=== PATIENT | female | born 1985 | race Caucasian/White ===

== ENCOUNTER 2018-05-26 19:53 | Emergency (ER) | payer OTHER ==
[~2018-05-26] VITALS: Ht 162.6 cm; Wt 90.9 kg
[~2018-05-26 19:53] MED LIST: NOCURR
[2018-05-26] MEDS ORDERED: PERTUSS(ACELL),DIPH,TET VAC/PF 0.5 ML VIAL IM ONE (21:30)
[2018-05-26] MEDS ORDERED: BACITRACIN 0.9 GM PACKET OINTMENT TP ONE (21:30)
[2018-05-26 21:48] VITALS: BP 136/82
== END 2018-05-26 21:52 | disposition home or self-care (01) ==
LOC: EMS 19:53
DX: S61.311A Laceration without foreign body of left index finger with damage to nail, initial encounter (principal); R03.0 Elevated blood-pressure reading, without diagnosis of hypertension; W26.0XXA Contact with knife, initial encounter; Y93.89 Activity, other specified; Y92.69 Other specified industrial and construction area as the place of occurrence of the external cause; Y99.0 Civilian activity done for income or pay
CPT/HCPCS: 90471; 90715

== ENCOUNTER 2019-03-04 15:36 | Emergency (ER) | payer MEDICAID, OTHER ==
[~2019-03-04] VITALS: Ht 167.6 cm; Wt 72.7 kg
[2019-03-04 16:02] LABS: BASOPHILS % (AUTO) 0.5 % (0.0-2.0); EOSINOPHILS % (AUTO) 1.2 % (1.0-6.0); HEMATOCRIT 37.3 % (36-46); HEMOGLOBIN 12.8 g/dL (12.0-16.0); LYMPHOCYTES # (AUTO) 1.8 K/uL (1.0-4.8); LYMPHOCYTES % (AUTO) 23.2 % (22.0-44.0); MEAN CORPUSCULAR HEMOGLOBIN 30.7 pg (26.0-34.0); MEAN CORPUSCULAR HGB CONC 34.4 G/dL (31.0-37.0); MEAN CORPUSCULAR VOLUME 90 fL (80-100); MONOCYTES # (AUTO) 0.4 K/uL (0.1-1.0); MONOCYTES % (AUTO) 5.3 % (2.0-9.0); NEUTROPHILS # (AUTO) 5.3 K/uL (1.8-7.7); NEUTROPHILS % (AUTO) 69.8 % (40.0-70.0); PLATELET COUNT (AUTO) 195 K/uL (150-450); RED BLOOD CELL COUNT(AUTO) 4.17 MIL/uL (4.00-5.20); RED CELL DISTRIBUTION WIDTH 13.9 % (11.5-14.5)
[2019-03-04 16:51] LABS: ANION GAP 6 mmol/L (8-16); CALCIUM, TOTAL 8.8 mg/dL (8.8-10.5); CARBON DIOXIDE 30 mmol/L (22-29); CHLORIDE 104 mmol/L (98-107); GLUCOSE,RANDOM 104 mg/dL (70-110); POTASSIUM 4.1 mmol/L (3.5-5.1); SODIUM SERUM 140 mmol/L (136-145)
[2019-03-04 17:04] LABS: ALANINE AMINOTRANSFERASE 38 U/L (12-78); ALBUMIN 3.9 g/dL (3.4-5.0); ALKALINE PHOSPHATASE 67 U/L (46-116); ASPARTATE AMINOTRANSFERASE 20 U/L (15-37); BILIRUBIN,TOTAL 0.3 mg/dL (0.1-1.0); CREATININE 0.92 mg/dL (0.60-1.30); GLOMERULAR FILTR. RATE CALC > 60 mL/min (>60); LIPASE 144 U/L (73-393); TOTAL PROTEIN, SERUM 7.7 g/dL (6.4-8.2); UREA NITROGEN, BLOOD 8 mg/dL (7-18)
[2019-03-04 18:10] LABS: HCG,QUANTITATIVE < 1 mIU/mL (0-6)
[2019-03-04] MEDS ORDERED: ONDANSETRON HCL 4 MG TABLET PO ONE (18:45)
[2019-03-04 18:46] LABS: BILIRUBIN,URINE NEGATIVE (NEGATIVE); GLUCOSE, URINE (UA) NEGATIVE (NEGATIVE); KETONES,URINE NEGATIVE (NEGATIVE); LEUKOCYTE ESTERASE ,URINE SMALL (NEGATIVE); NITRATE,URINE NEGATIVE (NEGATIVE); OCCULT BLOOD,URINE NEGATIVE (NEGATIVE); PROTEIN,URINE TRACE (NEGATIVE); UROBILINOGEN,URINE 0.2 mg/dL (<=1.0)
[2019-03-04 18:55] LABS: APPEARANCE,URINE HAZY (CLEAR)
[2019-03-04 19:03] LABS: BACTERIA,URINE None Seen /HPF (None Seen); RBC,URINE None Seen /HPF (0-2); SQUAMOUS EPITHELIAL CELL,UR Many /LPF (None Seen)
[2019-03-04 19:19] VITALS: BP 123/74
== END 2019-03-04 19:29 | disposition home or self-care (01) ==
LOC: EMS 15:39
DX: H66.91 Otitis media, unspecified, right ear (principal); R03.0 Elevated blood-pressure reading, without diagnosis of hypertension; R11.2 Nausea with vomiting, unspecified
CPT/HCPCS: 36415; 80053; 81001; 83690; 84702; 85025; 99283; Q0162

== ENCOUNTER 2025-01-28 10:24 | Inpatient (IN) | payer MEDICAID ==
[~2025-01-28] VITALS: Ht 165.1 cm; Wt 95.1 kg
[2025-01-28 11:37] LABS: COVID AG,FIA SOURCE NASAL SWAB
[2025-01-28 11:46] LABS: PLATELET COUNT (AUTO) 171 K/uL (150-450); RED BLOOD CELL COUNT(AUTO) 4.88 MIL/uL (4.00-5.20); RED CELL DISTRIBUTION WIDTH 20.3 % (11.5-14.5); WHITE BLOOD COUNT (AUTO) 7.6 K/uL (4.5-11.0)
[2025-01-28 11:54] LABS: CALCIUM, TOTAL 9.2 mg/dL (8.8-10.5); CREATININE 0.70 mg/dL (0.60-1.30); GLOMERULAR FILTR. RATE CALC > 60 mL/min (>60); GLUCOSE,RANDOM 102 mg/dL (70-110); SODIUM SERUM 139 mmol/L (136-145); UREA NITROGEN, BLOOD 10 mg/dL (7-18)
[2025-01-28 11:58] LABS: SARS-COV2 (COVID) ANTIGEN,FIA Negative (Negative)
[2025-01-28 12:04] LABS: RBC MORPHOLOGY COMMENT ABNORMAL RBC MORPH
[2025-01-28] MEDS: ONDANSETRON 4 MG RAPDIS TABLET PO ONE (15:38)
[2025-01-28 19:35] VITALS: O2SAT 100
[2025-01-28 19:47] LABS: ALCOHOL, URINE DRUG SCREEN NEGATIVE (NEGATIVE); AMPHET/METH SCREEN,URINE NEGATIVE (NEGATIVE); BARBITURATE SCREEN, URINE NEGATIVE (NEGATIVE); CANNABINOID SCREEN,URINE NEGATIVE (NEGATIVE); COCAINE SCREEN,URINE NEGATIVE (NEGATIVE); METHADONE SCREEN, URINE NEGATIVE (NEGATIVE)
[2025-01-28] MEDS ORDERED: MAGNESIUM HYDROXIDE SUSPENSION 30 ML UDCUP PO PRN (20:00)
[2025-01-28] MEDS ORDERED: PETROLATUM,WHITE 28 GM JELLY TP PRN (20:00)
[2025-01-28] MEDS ORDERED: ACETAMINOPHEN 325 MG TABLET PO PRN (20:00)
[2025-01-28] MEDS ORDERED: NICOTINE 14 MG/24 HOUR PATCH TD PRN (20:00)
[2025-01-28] MEDS ORDERED: DOCUSATE SODIUM 100 MG CAPSULE PO PRN (20:00)
[2025-01-28] MEDS ORDERED: IBUPROFEN 400 MG TABLET PO PRN (20:00)
[2025-01-28] MEDS ORDERED: MAG HYDROX/ALUMINUM HYD/SIMETH ES 30 ML SUSPENSION UDCUP PO PRN (20:00)
[2025-01-28] MEDS ORDERED: ALBUTEROL SULFATE HFA 90 MCG/PUFF 8 GM INHALER IH PRN (20:00)
[2025-01-28] MEDS ORDERED: LOPERAMIDE HCL 2 MG CAPSULE PO PRN (20:00)
[2025-01-28] MEDS ORDERED: GuaiFENesin/D-METHORPHAN [SUGAR-FREE] 200-20MG/10 ML SYRUP UDCUP PO PRN (20:00)
[2025-01-28] MEDS ORDERED: ONDANSETRON 4 MG TABLET PO PRN (20:00)
[2025-01-28 20:04] LABS: APPEARANCE,URINE HAZY (CLEAR); GLUCOSE, URINE (UA) NEGATIVE (NEGATIVE); LEUKOCYTE ESTERASE ,URINE MODERATE (NEGATIVE); NITRATE,URINE NEGATIVE (NEGATIVE); OCCULT BLOOD,URINE TRACE (NEGATIVE); PH,URINE DRUG SCREEN 6.0 (5.0-8.0); SPECIFIC GRAVITIY, URINE 1.033 (1.003-1.030)
[2025-01-28 20:49] LABS: SQUAMOUS EPITHELIAL CELL,UR Many /LPF (None Seen)
[2025-01-28 21:18] VITALS: BP 119/77; PULSE 78; RESP 17; TEMP 98.4; O2SAT 99
[2025-01-29] MEDS: ZOLPIDEM TARTRATE 10 MG TABLET PO PRN (00:49)
[2025-01-29] MEDS ORDERED: INFLUENZA VIRUS VACCINE TVS (6MO+) 2025-26/PF 45 MCG/0.5 ML SYRINGE IM. ONE (02:30)
[2025-01-29 08:31] VITALS: BP 105/70; PULSE 86; RESP 16; TEMP 97.8; O2SAT 99
[2025-01-29 08:59] LABS: PLATELET COUNT (AUTO) 141 K/uL (150-450); RED BLOOD CELL COUNT(AUTO) 4.76 MIL/uL (4.00-5.20); RED CELL DISTRIBUTION WIDTH 19.8 % (11.5-14.5); WHITE BLOOD COUNT (AUTO) 6.6 K/uL (4.5-11.0)
[2025-01-29 09:03] LABS: RBC MORPHOLOGY COMMENT ABNORMAL RBC MORPH
[2025-01-29 09:31] LABS: ASPARTATE AMINOTRANSFERASE 20 U/L (15-37); CALCIUM, TOTAL 9.0 mg/dL (8.8-10.5); CREATININE 0.72 mg/dL (0.60-1.30); GLOMERULAR FILTR. RATE CALC > 60 mL/min (>60); GLUCOSE,RANDOM 132 mg/dL (70-110); SODIUM SERUM 139 mmol/L (136-145); TOTAL PROTEIN, SERUM 7.9 g/dL (6.4-8.2); UREA NITROGEN, BLOOD 15 mg/dL (7-18)
[2025-01-29 09:35] LABS: CHOL/HDL RATIO 6.2 (3.9-5.7); LDL CHOL (CALC.) 107.0 mg/dL (0-130)
[2025-01-29 20:15] VITALS: BP 137/77; PULSE 82; RESP 19; TEMP 97.5; O2SAT 100
[2025-01-30 08:24] VITALS: BP 126/65; PULSE 94; RESP 17; TEMP 97.9; O2SAT 100
[2025-01-30 20:50] VITALS: BP 120/69; PULSE 80; RESP 17; TEMP 97.5; O2SAT 99
[2025-01-31] MEDS: CEPHALEXIN MONOHYDRATE 250 MG CAPSULE PO SCH (01:00)
[2025-01-31 09:00] VITALS: BP 100/65; PULSE 76; RESP 17; TEMP 98; O2SAT 100
== END 2025-01-31 12:10 | disposition home or self-care (01) | DRG 750 ==
LOC: EMS 10:24 → B3A 19:10
PROVIDERS: ADMIT Psychiatry & Neurology Child & Adolescent Psychiatry; ATTEND Psychiatry & Neurology Child & Adolescent Psychiatry
PROC: GZ56ZZZ Individual Psychotherapy, Supportive (ICD-10-PCS; principal; 2025-01-29)
PROC: GZ58ZZZ Individual Psychotherapy, Cognitive-Behavioral (ICD-10-PCS; 2025-01-29)
DX: F29 Unspecified psychosis not due to a substance or known physiological condition (principal); D64.9 Anemia, unspecified; N39.0 Urinary tract infection, site not specified; F20.9 Schizophrenia, unspecified; G47.00 Insomnia, unspecified
CPT/HCPCS: 80048; 80053; 80061; 80307; 81001; 83036; 84443; 84703; 85025; 87086; 99285; G0480